=== PATIENT | male | born 1990 | race African-American/Black ===

== ENCOUNTER 2024-12-03 01:48 | Emergency (ER) | payer OTHER, SELFPAY ==
[2024-12-03] VITALS (7 sets, daily range): BP systolic 141–174; BP diastolic 71–89; PULSE 99–106; RESP 14–16; TEMP 36.8–36.9; O2SAT 91–100
--- NOTE | ~2024-12-03 | XR_ITS ---
AP and oblique views of the left ribs Clinical History: Pain Findings: No rib fracture is seen. Osseous alignment is anatomic. Lungs are clear, without focal cons olidation or pleural effusion. Cardiomediastinal contour is within normal limits. Soft tissues are un remarkable. Impression: No rib fracture is seen. Reviewed, dictated and finalized at [facility]. Impression: No rib fracture is seen.
--- NOTE | 2024-12-03 02:05 | PC.NURSE ---
pt ambulatory off ems stretcher to er stretcher with no distress noted.
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
[2024-12-03] MEDS: PLEASE ENTER ALLERGY INFO XX (03:34)
[2024-12-03] MEDS: KETOROLAC (*BKC) 60 MG/2 ML VIAL IM (03:34)
--- OUTSIDE RECORDS SUMMARY | 2024-12-03 04:52 | XMS_ITS | Encounter Summary ---
Author Organization [facility] Health Address [address] [place] [address] Care Team Providers Care Finance Admin Name Role Phone Shahla MCKEON MD, Deonte Page Primary Care Provider + Reason for Visit * Reason Onset Date Comments Appointment 11/02/2023 Encounter Details Date Type Department Care Team (Late st Contact Info) Description 11/02/2023 Telephone [facility] - Cardiology [address], [facility] [address] [place] [address] Rehan Bush, INSPECTOR [employer] Appointment Social History Tobacco Use Types Packs/Day Years Used Date Smoking Tobacco: Former Cigarettes 0.5 5 Smokeless Tobacco: Never Comments:2-3 cigarettes per week Alcohol Use Standard Drinks/Week Comments Not Currently 0 (1 standard drink = 0.6 oz pur e alcohol) AUDIT-C Answer Date Recorded Q1: How often do you have a drink containing alcohol? Never 02/03/2023 Q2: How many drinks containi ng alcohol do you have on a typical day when you are drinking? Patient does not drink Q3: How often do you have si x or more drinks on one occasion? Never 02/03/2023 Overall Financial Resource Strain (CARDIA) Answe r Date Recorded How hard is it for you to pa y for the very basics like food, housing, medical care, and heating? Not very hard 10/17/2023 PHQ-2 Answer Date Recorded Patient Health Questionnaire-2 Score 0 03/22/2023 [facility] - Occupational Stress Questionnaire Answer Date Recorded Do you feel stress - tense, restless, nervous, or anxious, or unable to sleep at night because your mind is troubled all the time - these days? Not at all 10/17/2023 Hunger Vital Sign Answer Date Recorded Within the past 12 months, y ou worried that your food would run out before you got the money to buy more. Never true 10/17/19 24 Within the past 12 months, t he food you bought just didn't last and you didn't have money to get more. Never true 10/17/2023 PRAPARE - Transportation Answer Date Re corded In the past 12 months, has l ack of transportation kept you from medical appointments or from getting medications? No 10/17/2023 Lack of Transportation (Non-Medical) Not on file 10/17/2023 Housing Stability Vital Sign Answer Dominik e Recorded In the last 12 months, was t here a time when you were not able to pay the mortgage or rent on time? No 10/17/2023 In the last 12 months, how many places have you lived? 1 10/17/2023 In the last 12 months, was t here a time when you did not have a steady place to sleep or slept in a nursing home (including now)? No 10/17/2023 Sex and Gender Information Value Date Recorded Sex Assigned at Not on file Legal Sex Male 12:46 AM CDT Gender Identity Not on file Sexual Orientation Not on file documented as of this encounter Functional Status * Is person deaf or have serious hearing difficulty? Answer Date of Assessment Author No 04/23/2023 11:37 AM CDT Ann Boyer RN * Is person blind or have serious difficulty seeing? Answer Date of Assessment Author No 04/23/2023 11:37 AM CDT Ann Boyer RN * Does person have serious difficulty walking/climbing stairs? Answer Date of Assessment Author No 04/23/2023 11:37 AM DICKSONT Ann Boyer RN * Does person have difficulty dressing/bathing? Answer Date of Assessment Author No 04/23/2023 11:37 AM CDT Ann Boyer RN * Does person have difficulty doing errands alone? Answer Date of Assessment Author No 04/23/2023 11:37 AM CDT Ann Boyer RN documented as of this encounter Mental Status * Does person have difficulty concentrating/remembering/making decisions? Answer Entry Date Author No 04/23/2023 11:37 AM CDT Ann Boyer RN documented in this encounter Miscellaneous Notes * Telephone Encounter - Kelly Garcia - 11/02/2023 11:38 AM CDT Current Provider name: Rehan Bush Reason for call: [facility] called requesting if the pt could get in sooner than appointment on 01/02 regarding CHF. Pt's scheduled appt is the soonest available for a new pt Patient Call Back number: [phone] documented in this encounter Plan of Treatment Upcoming Encounters Date Type Department Care Team (Late st Contact Info) Description 12/03/2024 8:30 AM CDT Office Visit [facility] - Internal Med [address] [place] [address], [place] [id number] Deonte Gale II, MD [address] [place] [address] OF [facility] [place] [address] documented as of this encounter Goals Goal Patient Goal Type Associated Problems Recent Progress Patient-Stated? Author Medication Management General On track( 024 10:46 AM CDT) No Tanja Aburto RN Note: Expected end date: Ongoing Interventions: Take all medications as prescribed Let your doctor know right away about any changes in your medications Make sure to request a refill of your medication at least one week prior to your last dose documented as of this encounter Visit Diagnoses Not on filedocumented in this encounter Additional Health Concerns Infection Onset Date Last Indicated Resolved Time COVID-19 Under Investigation 07/17/2024 07/17/2024 07/17/2024 6:13 PM STAFF RESPIRATORY THERAPIST COVID-19 Under Investigation 07/17/2024 07/17/2024 07/18/2024 2:37 AM STAFF RESPIRATORY THERAPIST documented as of this encounter Care Teams Finance Admin Relationship Specialty Start Date End Date Deonte Gale II, MD [address] OF [facility] [place] [address] PCP - General Internal Medicine 04/06/23 documented as of this encounter
--- OUTSIDE RECORDS SUMMARY | 2024-12-03 04:52 | XMS_ITS | Clinical Summary ---
Author Organization [facility] Address [address] [place] [address] Care Team Providers Care Dispute Coordinator Name Role Phone No, Physician Primary Care Provider [phone] Allergies No known active allergies Medications aspirin 81 mg enteric coated tablet Take 1 tablet (81 mg total) by mouth daily 3 Active carvediloL (COREG) 6.25 mg tablet Take 1 tablet (6.25 mg total) by mouth 3 Active lovastatin (MEVACOR) 10 mg tablet Take 1 tablet (10 mg total) by mouth nightly 3 Active metFORMIN (GLUCOPHAGE) 500 mg tablet Take 1 tablet (500 mg total) by mouth 3 Active acetaminophen 500 mg capsuleIndicati ons:Fever,Pain Take 2 capsules (1,000 mg total) by mouth every 6 (six) hours as needed for pain 30 tablet 3 Active polyethylene glycol (MIRALAX) 17 gram packetIndicatio ns:constipation Take 1 packet (17 g total) by mouth daily as needed for constipation for up to 30 doses 20 packet 3 Active insulin glargine (LANTUS) 100 unit/mL (3 mL) pen for injection Inject 40 Units under the skin nightly 30 mL 3 Active folic acid (FOLVITE) 1 mg tablet Take 1 tablet (1 mg total) by mouth daily 30 tablet 3 Active oxyCODONE (ROXICODONE) 5 mg immediate release tabletIndicatio ns:Pain Take 1 tablet (5 mg total) by mouth every 4 (four) hours as needed for pain for up to 12 doses 12 tablet 3 Active glucagon (BAQSIMI) 3 mg/actuation spray,non-aeros ol Administer 1 spray into one nostril as needed (blood glucose <70) 1 each 3 Active insulin lispro (HumaLOG, ADMELOG) 100 unit/mL pen for injection Inject 10 Units under the skin 3 (three) times a day 12 mL 3 Active Active Problems Problem Noted Date Diagnosed Date Chronic kidney disease (CKD), stage III (moderat e) 01/13/2023 Assessment & Plan (01/13/2023 12:33 PM CDT): -likely due to uncontrolled DM -Creatinine improved as compared to the ones from [facility] early January 2023 -monitor Necrotizing soft tissue infection 01/12/2023 Assessment & Plan (01/16/2023 11:33 AM CDT): -Found to have necrotizing fascitis on 12/29. -Underwent debridement 12/31 and washout 01/03, 01/05 with cultures growing staph haemolyticus, staph epi, and prevotella. Bcx neg. -left [facility] before finishing antibiotics -continue vancomycin, cefepime and flagyl, EOT 01/17/23 -needs dry dressing changes daily. Wound c/s -[facility] consulted for reena drain emoval today and sutures will need to be out 02/05 at [facility] -advised follow up with his surgeons at [facility] Diabetes 01/12/2023 Assessment & Plan (01/13/2023 12:27 PM CDT): -A1C undetectably high in 12/2022 -home regimen: lantus 40, lispro 10 -started on weight based basal/premeal and SSI here -inpatient BG goal 140-180 -CTM HTN (hypertension) 01/12/2023 Assessment & Plan (01/13/2023 12:23 PM CDT): -continue Amlodipine, coreg Anemia 01/12/2023 Assessment & Plan (01/13/2023 12:27 PM CDT): -OSH labs c/w AoCD, folate deficiency (in 01/2023) -CTM Hospital acquired PNA 01/12/2023 Assessment & Plan (01/14/2023 12:57 PM CDT): -Found to have HAP 01/05 s/p 7 days of vanc/cefe/flagyl (and will be on additional for necrotizing thigh infection until 01/17) -RVP neg, CXR neg on RA so likely SOB from deconditioning -added prn anti-tussives and nebs -CTM Morbid obesity with BMI of 60.0-69.9, adult 03/2023 Assessment & Plan (01/13/2023 12:24 PM CDT): -BMI 66 -low fat, DM diet -counseled on weight loss Discharge planning issues 01/12/2023 Assessment & Plan (01/16/2023 11:34 AM CDT): -Needs IV abx until 01/17. -[facility] was working on discharging but he ended up leaving A. Was told that his [place] Medicaid would not cover SNF which he needs d/t severe deconditioning - PT OT now rec Home w family -will finish IV antibiotics tomorrow Sleep apnea 12/20/2022 01/12/2023 Assessment & Plan (01/14/2023 12:58 PM CDT): -reinstated the importance of wearing a BiPAP nightly, refused to wear it last night -He's so high risk for decompensation that order allows machine to be kept in room -explained the risk of respiratory failure to him at bedside -tele w/ O2 monitoring Resolved Problems Problem Noted Date Diagnosed Date Resolved Date GO (dyspnea on exertion) 01/13/2023 Assessment & Plan (01/13/2023 12:25 PM CDT): -S/p 7 days HAP treatment and still GO -CXR neg, RVP neg - DDx: deconditioning + body habitus. Less likely PE as he is not hypoxic and was receiving DVT ppx at [facility]. No signs of volume overload Social History Tobacco Use Types Packs/Day Years Used Date Smoking Tobacco: Former Cigarettes Tobacco Cessation:Counseling Given: Not Answered Social Connection and Isolat ion Panel [NHANES] Answer Date Recorded In a typical week, how many times do you talk on the phone with family, friends, or neighbors? More than three times a week 01/19/2023 How often do you get togethe r with friends or relatives? More than three times a week 01/19/2023 How often do you attend chur ch or muslim services? More than 4 times per year 01/19/2023 Do you belong to any clubs o r organizations such as samaritan groups, unions, fraternal or athletic groups, or school groups? No 01/19/2023 How often do you attend meet ings of the clubs or organizations you belong to? Never 01/19/2023 Are you , , di vorced, , never , or living with a partner? Living with partner 01/19/2023 Overall Financial Resource Strain (CARDIA) Answe r Date Recorded How hard is it for you to pa y for the very basics like food, housing, medical care, and heating? Somewhat hard 01/19/2023 PHQ-2 Answer Date Recorded PHQ-2 Total Score (If total score is 3 or more points, staff should administer the PHQ-9) 0 01/12/2023 Hunger Vital Sign Answer Date Recorded Within the past 12 months, y ou worried that your food would run out before you got the money to buy more. Sometimes true Within the past 12 months, t he food you bought just didn't last and you didn't have money to get more. Sometimes true PRAPARE - Transportation Answer Date Re corded In the past 12 months, has l ack of transportation kept you from medical appointments or from getting medications? Yes 01/05 In the past 12 months, has l ack of transportation kept you from meetings, work, or from getting things needed for daily living? Yes 01/19/2023 Housing Stability Vital Sign Answer Dominik e Recorded In the last 12 months, was t here a time when you were not able to pay the mortgage or rent on time? No 01/19/2023 In the last 12 months, how many places have you lived? 2 01/19/2023 In the last 12 months, was t here a time when you did not have a steady place to sleep or slept in a senior care (including now)? No 01/19/2023 Personal Safety Answer Date Recorded Have you ever been in or are you currently in a harmful physical or emotional relationship or is someone making you feel afraid or unsafe? Denies 01/12/2023 Sex and Gender Information Value Date Recorded Sex Assigned at Not on file Legal Sex Male 2:57 PM CDT Gender Identity Not on file Sexual Orientation Not on file Obstetrics History Last Filed Vital Signs Vital Sign Reading Time Taken Comments Blood Pressure 142/65 01/17/2023 12:10 PM CDT Pulse 84 01/17/2023 12:10 PM CDT Temperature 36.6 C (97.9 F) 01/17/2023 12:10 PM CDT Respiratory Rate 18 01/17/2023 12:10 PM CDT Oxygen Saturation 99% 01/17/2023 12:10 PM CDT Inhaled Oxygen Concentration - - Weight 215 kg (473 lb 15.8 oz) 01/13/2023 12:27 AM CDT Height 180.3 cm (5' 10.98 ) 01/13/2023 12:27 AM CDT Body Mass Index 66.14 01/13/2023 12:27 AM CDT Plan of Treatment Health Maintenance Due Date Last Done Comments Albumin Creatinine Ratio, Urine 1988 Hepatitis C Screening 1988 Dilated Eye Exam 1988 Foot Exam 1988 Varicella Vaccines (1 of 2 - 13+ 2-dose series) 2001 Regular Well Visit/Exam 18-64 2006 Pneumococcal vaccine <65 (1 of 2 - PCV) 2007 Depression Screening 01/13/2024 01/12/2023 eGFR 01/16/2024 01/15/2023, 04/2023, 01/12/2023 Hemoglobin A1C 10/20/2024 04/22/2024, 01/2 04/2024, 07/10/2023, Additional history exists Lipid Panel 04/22/2025 04/22/2024, 1008/2022, 01/12/2023 DTaP/Tdap/Td Vaccine (2 - Td or Tdap) 03/22/2033 03/22/2023 Hepatitis B Screening Completed 04/22/2024 , 04/26/2023, 03/22/2023 Influenza Vaccine Completed 04/22/2024, 10/25/2023 HPV Vaccines Aged Out No longer eligi ble based on patient's age to complete this topic Procedures Procedure Name Priority Date/Time Associated Diagnosis Comments EGFR Routine 01/15/2023 10:26 PM CDT HEMOGLOBIN A1C STAT 01/12/2023 7:53 PM CDT LIPID PANEL STAT 01/12/2023 7:53 PM CDT from Last 3 Months or Most Recently Relevant to Health Maintenance Results * (ABNORMAL) eGFR (01/15/2023 10:26 PM CDT) eGFR 50(L) 90 - 130 mL/min/1. 73 m2 [facility] Comment: Interpretive Data Reference Interval Normal >/= 90 mL/min/1.73m2 Mildly decreased* 60 - 89 mL/min/1.73m2 Mildly to moderately decreased 45 - 59 mL/min/1.73m2 Moderately to severely decreased 30 - 44 mL/min/1.73m2 Severely decreased 15 - 29 mL/min/1.73m2 Kidney Failure < 15 mL/min/1.73m2 *Relative to young adult level Estimated glomerular filtration rate is determined by the 2020 CKD-EPI equation recommended by the National Kidney Foundation (A Unifying Approach to GFR Estimation: Recommendations of the NKF-ASK Task Force on Reassessing the Inclusion of Race in Diagnosing Kidney Disease, JASN 2020). The CKD-EPI equation should not be used for patients with unstable renal function and has not been validated in children and those over 70. Current interpretive data was last reviewed 2021. Blood 01/15/2023 10:2 6 PM CDT 01/15/2023 10:53 PM CDT us Nunu Mortensen MD PhD LAB BLOOD ORDERABLES Final Result Performing Organization Address [facility] de Phone Number [facility] [place] [address] * (ABNORMAL) Hemoglobin A1c (01/12/2023 7:53 PM CDT) Hgb A1C 11.8(H) 4.0 - 5.6 % [facility] Estimated Average Glucose 292 mg/dL [facility] Comment: The ADA recommends reporting an estimated Average Glucose (eAG) with all Hemoglobin A1c results using the equation derived from a study of 507 normal and diabetic adults. Minority populations were underrepresented and children were not included. (Diabetes Care 2020; 43(S1): S66-S76). The eAG is not equivalent to a fasting glucose. Blood 01/12/2023 7:53 PM CDT 01/12/2023 8:07 PM CDT Deepika Ragland MD LAB BLOOD ORDERABLES Final Result Performing Organization Address [facility] de Phone Number [facility] [place] [address] * (ABNORMAL) Lipid panel (01/12/2023 7:53 PM CDT) Cholesterol 105 30 - 199 mg/dL [facility] Comment: Interpretive Data Ages < or = 19 years Acceptable: <170 mg/dL Borderline high: 170-199 mg/dL High: >or= 200 mg/dL Ages > or = 20 years Desirable: <200 mg/dL Borderline high: 200-239 mg/dL High: >or= 240 mg/dL Literature References: 1. Expert Panel on Integrated Guidelines for Cardiovascular Health and Risk Reduction in Children and Adolescents. Pediatrics 2011;128:S213 2. NCEP Expert Panel. Circulation 2004;110:227 Current Interpretive Data was last revised on 2018. Triglycerides 125 <=149 mg/dL [facility] Comment: Interpretive Data Ages < or = 9 years Acceptable: <75 mg/dL Borderline high: 75-99 mg/dL High: >or= 100 mg/dL Ages 10 to 20 years Acceptable: <90 mg/dL Borderline high: 90-129 mg/dL High: >or= 130 mg/dL Ages > or = 20 years Desirable: <150 mg/dL Borderline high: 150-199 mg/dL High: 200-499 mg/dL Very high: >or= 499 mg/dL Literature References: 1. Expert Panel on Integrated Guidelines for Cardiovascular Health and Risk Reduction in Children and Adolescents. Pediatrics 2011;128:S213 2. NCEP Expert Panel. Circulation 2004;110:227 Current Interpretive Data was last revised on 2018. HDL 33(L) >=40 mg/dL [facility] Comment: Interpretive Data Ages < or = 19 years Acceptable: >45 mg/dL Borderline low: 40-45 mg/dL Low: <40 mg/dL Ages > or = 20 years Desirable: >or= 60 mg/dL Low: <40 mg/dL Literature References: 1. Expert Panel on Integrated Guidelines for Cardiovascular Health and Risk Reduction in Children and Adolescents. Pediatrics 2011;128:S213 2. NCEP Expert Panel. Circulation 2004;110:227 Current Interpretive Data was last revised on 2018. LDL, calculated 47 <=129 mg/dL [facility] Comment: Interpretive Data Ages < or = 19 years Acceptable: <110 mg/dL Borderline high: 110-129 mg/dL High: >or= 130 mg/dL Ages > or = 20 years Optimal: <100 mg/dL Near optimal: 100-129 mg/dL Borderline high: 130-159 mg/dL High: >160 mg/dL Literature References: 1. Expert Panel on Integrated Guidelines for Cardiovascular Health and Risk Reduction in Children and Adolescents. Pediatrics 2011;128:S213 2. NCEP Expert Panel. Circulation 2004;110:227 Current Interpretive Data was last revised on 2018. Non-HDL Cholesterol 72 mg/dL [facility] Comment: Interpretive Data Ages < or = 19 years Acceptable: <120 mg/dL Borderline high: 120-144 mg/dL High: >145 mg/dL Ages > or = 20 years When triglycerides are >200 mg/dL, Non-HDL cholesterol is a secondary target of therapy with treatment goals that are 30 mg/dL greater than the LDL cholesterol target. Literature References: 1. Expert Panel on Integrated Guidelines for Cardiovascular Health and Risk Reduction in Children and Adolescents. Pediatrics 2011;128:S213 2. NCEP Expert Panel. Circulation 2004;110:227 Current Interpretive Data was last revised on 2018. Chol/HDL ratio 3 [facility] Blood 01/12/2023 7:53 PM CDT 01/12/2023 8:05 PM CDT Deepika Ragland MD LAB BLOOD ORDERABLES Final Result [facility] [place] [address] from Last 3 Months or Most Recently Relevant to Health Maintenance Insurance [facility] Advance Directives For more information, please contact: [phone] * Full Code (Latest Code Status on File) Date Activated Date Inactivated Comments 01/13/2023 12:05 AM 01/17/2023 7:22 PM Care Teams Dispute Coordinator Relationship Specialty Start Date End Date No, Physician PCP - General 01/12/23
--- OUTSIDE RECORDS SUMMARY | 2024-12-03 04:52 | XMS_ITS | Encounter Summary ---
Author Organization [facility] Address [address] [place] [address] Care Team Providers Care Child Welfare Consultant Name Role Phone None, Provider Primary Care Provider Unavaila ble Encounter Details Date Type Department Care Team (Late st Contact Info) Description 10/21/2017 Abstract [facility] CONVERSION [address] [place] [address] , Generic Conversion, Social History Tobacco Use Types Packs/Day Years Used Date Smoking Tobacco: Never Assessed Sex and Gender Information Value Date Recorded Sex Assigned at Male 11/29/2024 11:38 PM CDT Legal Sex Male 10:14 PM CAD INTERN Gender Identity Not on file Sexual Orientation Not on file documented as of this encounter Plan of Treatment Not on file documented as of this encounter Visit Diagnoses Not on filedocumented in this encounter Care Teams Child Welfare Consultant Relationship Specialty Start Date End Date None, Provider, PCP - General 04/22/20 documented as of this encounter
--- OUTSIDE RECORDS SUMMARY | 2024-12-03 04:52 | XMS_ITS | Patient Health Record ---
Author Organization [facility] Address [address] [place] [address] Care Team Providers Care Manager Cath Lab Name Role Phone Virginia Cardenas Primary Care Provider Allergies No Known Allergies Reason For Referral No Information Medications Medication SIG (Take, Route, Frequency, Duration) Notes Start Date End Date Status metFORMIN HCl ER 500 MG TAKE 1 TABLET BY MOUTH TWICE A DAY WITH MEALS for 30 Active Gabapentin 300 MG 1 capsule Orally twi ce daily for 30 days Active HumaLOG KwikPen 100 UNIT/ML 10 units with meals Subcutaneous three times daily for 30 days 11/24/2021 Active Aspirin Low Dose 81 MG TAKE 1 TABLET BY MOUTH EVERY DAY FOR 30 DAYS for 30 Active Lancets - as directed external ly once daily for 100 days 03/18/2020 Not-Taki ng Lantus SoloStar 100 UNIT/ML 40 units Subcutaneous once daily at bedtime for 30 days Active Alcohol Prep 70 % as directed clean sk in prior to injecting insulin for 100 days 06/26/2020 Not-Taking Chlorthalidone 50 MG TAKE 1 TABLET BY MO UTH EVERY DAY IN THE MORNING WITH FOOD FOR 30 DAYS for 30 Active Insulin Pen Needle 31G X 6 MM as directed three times daily for 30 days 11/24/2021 Not-Taking Lisinopril 40 MG 1 tablet Orally Once a day for 30 days Active OneTouch Verio - USE DIRECTED FOUR TIMES A DAY for 25 Not-Taking Pen Schurz 31G X 6 MM as directed exter milan once daily for 30 days Active Lovastatin 40 MG TAKE 1 TABLET BY KIERA TH WITH THE EVENING MEAL ONCE A DAY for 30 days Active Glucometer of choice regular use when directed external four times daily for 365 days Not-Taking Lancets - as directed external ly four times daily for 30 days Not-Taking Lovastatin 40 MG 1 tablet with the evening meal Orally Once a day for 30 days Not-Michele meier Immunizations Vaccine Route Administration Date Status Comme nts TDAP VACCINE >7 IM Unknown 02/22/2014 Administered TDAP VACCINE >7 IM Unknown 09/07/2020 Administered Social History Tobacco Use: Social History Observation Description Date Details (start date - stop date) Current Smoker NA - NA Tobacco Use/Smoking Question Answer Notes Are you a current smoker How often do you smoke cigarettes? every day How many cigarettes a day do you smoke? 11-20 How soon after you wake up d o you smoke your first cigarette? 31-60 minutes Are you interested in quitting? Not ready to juliet t Additional Findings: Tobacco User Modera te cigarette smoker (10-19 cigs/day) Alcohol Screen (Audit-C) Question Answer Notes Did you have a drink contain ing alcohol in the past year? Yes How often did you have a dri nk containing alcohol in the past year? 2 to 4 times a month (2 points) How many drinks did you have on a typical day when you were drinking in the past year? 1 or 2 drinks (0 point) How often did you have 6 or more drinks on one occasion in the past year? Never (0 point) Points 2 Interpretation Negative Sexual History Question Answer Notes Had sex in the past 12 months (vaginal, oral, or anal)? Yes with Women only Use protection? Yes How often? Half the time Prevention strategies discussed: Condoms Have you ever had a Sexually transmitted disease ? No Tobacco use other than smoking: Question Answer Notes Are you an other tobacco user? No Problems Problem Type SNOMED Code ICD Code Onset Dates Problem Status W/U Status Risk Notes Problem [id number] Type 1 diabetes mellitus with hyperglycemia (E10.65) 11/25/19 Active confirmed Problem 8675853 Primary insomnia (F51.01) 11/15/19 23 Active confirmed Problem 297347424 skilled nursing (current) use of insulin (Z79.4) 11/25/19 Active confirmed Problem Tobacco dependence (33713243) Tobacco dependence (F17.200) 06/26/20 Active confirmed Problem 03252317 Essential hypertension (I10) 12/27/19 Active confirmed Problem 541601513 Neuropathy (G62.9) 08/19/19 Active confirmed Problem 83593948 Hyponatremia (E87.1) 06/26/20 Active confirmed Problem 876784539 Elevated liver enzymes (R74.8) 06/26/20 Active confirmed Problem 396068560 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) 08/19/19 Active confirmed Problem 136573234 Type 2 diabetes mellitus without complication, without long-term current use of insulin (E11.9) 12/27/19 Active confirmed Problem Body mass index 40+ - morbidly obese (556243525) BMI 70 and over, adult (Z68.45) 11/25/19 Active confirmed Problem Osteomyelitis (16356924) 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) 06/26/20 Active confirmed Plan Of Treatment Pending Test Test Name Order Date Sleep Study, Home : 10276 11/14/2022 Insurance Providers Payer Name Payer Address Payer Phone Subscriber Number Group Number Insured Name Patient Relationship to Insured Coverage Start Date Coverage End Date [facility] [address] [place] [address] [id number] Yan Bautista Self - patient is the insured [facility] [address] [place] [address] [id number] Yan Bauitsta Self - patient is the insured Medical (General) History Medical History History ICD Code Type 2 diabetes HTN Sleep apnea Surgical History Surgery Date(Month/Year) ankle surgery 04/2020 Hospitalization History Reason Date(Month/Year) [facility] ER 11/2021
--- OUTSIDE RECORDS SUMMARY | 2024-12-03 04:52 | XMS_ITS | Encounter Summary ---
Author Organization [facility] Address [address] [place] [address] Care Team Providers Care Washer Assembler Name Role Phone None, Provider Primary Care Provider Felipe moreno Encounter Details Date Type Department Care Team (Late st Contact Info) Description 05/09/2023 Hospital Follow-up Call [facility] [address] [place] [address] Mellisa Leal RN Social History Tobacco Use Types Packs/Day Years Used Date Smoking Tobacco: Every Day Cigarettes Smokeless Tobacco: Never Alcohol Use Standard Drinks/Week Comments Not Currently 0 (1 standard drink = 0.6 oz pur e alcohol) Humiliation, Afraid, Rape, and Kick questionnair e Answer Date Recorded Within the last year, have y ou been afraid of your partner or ex-partner? No 05/06/2023 Within the last year, have y ou been humiliated or emotionally abused in other ways by your partner or ex-partner? No Within the last year, have y ou been kicked, hit, slapped, or otherwise physically hurt by your partner or ex-partner? No 05/06/2023 Within the last year, have y ou been raped or forced to have any kind of sexual activity by your partner or ex-partner? No 05/06/2023 Overall Financial Resource Strain (CARDIA) Answe r Date Recorded How hard is it for you to pa y for the very basics like food, housing, medical care, and heating? Not hard at all 05/06/2023 Hunger Vital Sign Answer Date Recorded Within the past 12 months, y ou worried that your food would run out before you got the money to buy more. Never true 05/06/20 23 Within the past 12 months, t he food you bought just didn't last and you didn't have money to get more. Never true 05/06/2023 PRAPARE - Transportation Answer Date Re corded In the past 12 months, has l ack of transportation kept you from medical appointments or from getting medications? No 04/09 In the past 12 months, has l ack of transportation kept you from meetings, work, or from getting things needed for daily living? No 05/06/2023 Housing Stability Vital Sign Answer Dominik e Recorded In the last 12 months, was t here a time when you were not able to pay the mortgage or rent on time? No 05/06/2023 In the last 12 months, how many places have you lived? 2 05/06/2023 In the last 12 months, was t here a time when you did not have a steady place to sleep or slept in a custodial (including now)? No 05/06/2023 Sex and Gender Information Value Date Recorded Sex Assigned at Male 11/29/2024 11:38 PM CDT Legal Sex Male 10:14 PM COATER Gender Identity Not on file Sexual Orientation Not on file documented as of this encounter Functional Status * Are you deaf or do you have serious difficulty hearing Answer Date of Assessment Author Status No 05/06/2023 6:14 AM Deep Moreno RN Active * Are you blind or do you have serious difficulty seeing, even when wearing glasses? Answer Date of Assessment Author Status No 05/06/2023 6:14 AM Deep Moreno RN Active * Do you have serious difficulty walking or climbing stairs? Answer Date of Assessment Author Status No 05/06/2023 6:14 AM Deep Moreno RN Active * Do you have difficulty dressing or bathing? Answer Date of Assessment Author Status No 05/06/2023 6:14 AM Deep Moreno RN Active * Because of a physical, mental, or emotional condition, do you have difficulty doing errands alone such as visiting a doctor's office or shopping? Answer Date of Assessment Author Status No 05/06/2023 6:14 AM Deep Moreno RN Active documented as of this encounter Mental Status * Because of a physical, mental, or emotional condition, do you have serious difficulty concentrating, remembering, or making decisions? Answer Entry Date Author Status No 05/06/2023 6:14 AM Deep Moreno RN Active documented in this encounter Plan of Treatment Not on file documented as of this encounter Goals Goal Patient Goal Type Associated Problems Recent Progress Patient-Stated? Author Safety - able to safely ambulate at home; tripping hazards removed from the home Lifestyle No Magy Lai Safety Patient/family will have appropriate support at home upon discharge Lifestyle No Magy Lai documented as of this encounter Visit Diagnoses Not on filedocumented in this encounter Care Teams Washer Assembler Relationship Specialty Start Date End Date None, Provider, PCP - General 04/22/20 documented as of this encounter
--- OUTSIDE RECORDS SUMMARY | 2024-12-03 04:52 | XMS_ITS | Clinical Summary ---
Author Organization [facility] Address [address] [place] [address] Care Team Providers Care Director Of Entertainment Name Role Phone None, Provider MD Primary Care Provider Unavaila ble Allergies No known active allergies Medications carvedilol (COREG) 25 MG tablet Take 1 tablet (25 mg total) by mouth 2 (two) times daily. 02/24/2023 Active furosemide (LASIX) 40 MG tablet Take 1 tablet (40 mg total) by mouth 2 (two) times daily. 02/24/2023 Active valsartan (DIOVAN) 160 MG tablet Take 1 tablet (160 mg total) by mouth 2 (two) times a day. 02/24/2023 Active rosuvastatin (CRESTOR) 10 MG tablet Take 1 tablet (10 mg total) by mouth daily. 02/24/2023 Active gabapentin (NEURONTIN) 600 MG tablet Take 1 tablet (600 mg total) by mouth 3 (three) times daily. 02/24/2023 Active metFORMIN (GLUCOPHAGE) 500 MG tablet Take 1 tablet (500 mg total) by mouth 2 (two) times daily with meals. Active insulin glargine (LANTUS) 100 UNIT/ML injection (VIAL) Inject 40 Units into the skin nightly at bedtime. Active insulin lispro (HUMALOG) 100 UNIT/ML injection (VIAL) Inject 10 Units into the skin 3 (three) times daily before meals. Active NIFEdipine XL (PROCARDIA XL) 90 MG 24 hr tablet Take 1 tablet (90 mg total) by mouth daily. Do not break or crush tablet. Active lidocaine (LIDODERM) 5 % Place 1 patch onto the skin daily for 30 days. Remove & Discard patch within 12 hours or as directed by 30 patch 11/30/2024 12/31/19 Active Active Problems Problem Noted Date Diagnosed Date Diastolic dysfunction 08/05/2023 Hyperkalemia 07/11/2023 Cellulitis of right leg 06/30/2023 CHF (congestive heart failure) ([facility]) 05/06/2023 keno terminal operator (current) use of insulin ([facility]) 11/24/2021 Type 1 diabetes mellitus wit h hyperglycemia ([facility]) 11/24/2021 Neuropathy 08/19/2021 Other diabetic neurological complication associated with type 2 diabetes mellitus ([facility]) 08/19/2021 Elevated liver enzymes 06/26/2020 Hyponatremia 06/26/2020 Osteomyelitis ([facility]) 06/26/2020 Tobacco dependence 06/26/2020 Essential hypertension 12/27/2019 Encounters Date Type Department Care Team Description 11/30/2024 1:42 AM CDT - 11/30/2024 4:49 AM CDT Emergency [facility] Emergency [address] [place] [address] Elmo Ballard MD Fall Discharge Disposition: Home or Self Care (Routine Discharge) 11/29/2024 Travel from Last 3 Months Social History Tobacco Use Types Packs/Day Years Used Date Smoking Tobacco: Every Day Cigarettes Smokeless Tobacco: Never Tobacco Cessation:Ready to Q uit: Not Asked; Counseling Given: Not Answered Alcohol Use Standard Drinks/Week Comments Not Currently 0 (1 standard drink = 0.6 oz pur e alcohol) [facility] Utilities Answer Date Recorded In the past 12 months has e [employer], oil, or water [email or web address] threatened to shut off services in your home? No 06/30/2023 Humiliation, Afraid, Rape, and Kick questionnair e Answer Date Recorded Within the last year, have y ou been afraid of your partner or ex-partner? No 06/30/2023 Within the last year, have y ou been humiliated or emotionally abused in other ways by your partner or ex-partner? No Within the last year, have y ou been kicked, hit, slapped, or otherwise physically hurt by your partner or ex-partner? No 06/30/2023 Within the last year, have y ou been raped or forced to have any kind of sexual activity by your partner or ex-partner? No 06/30/2023 Overall Financial Resource Strain (CARDIA) Answe r Date Recorded How hard is it for you to pa y for the very basics like food, housing, medical care, and heating? Not very hard 06/30/2023 Hunger Vital Sign Answer Date Recorded Within the past 12 months, y ou worried that your food would run out before you got the money to buy more. Never true 06/30/20 23 Within the past 12 months, t he food you bought just didn't last and you didn't have money to get more. Never true 06/30/2023 PRAPARE - Transportation Answer Date Re corded In the past 12 months, has l ack of transportation kept you from medical appointments or from getting medications? No 06/08 In the past 12 months, has l ack of transportation kept you from meetings, work, or from getting things needed for daily living? No 06/30/2023 Housing Stability Vital Sign Answer Dominik e Recorded In the last 12 months, was t here a time when you were not able to pay the mortgage or rent on time? No 06/30/2023 In the last 12 months, how many places have you lived? 1 06/30/2023 In the last 12 months, was t here a time when you did not have a steady place to sleep or slept in a skilled nursing (including now)? 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 Gender Identity Not on file Sexual Orientation Not on file Last Filed Vital Signs Vital Sign Reading Time Taken Comments Blood Pressure 181/131 11/30/2024 3:38 AM CDT Pulse 83 11/30/2024 3:38 AM CDT Temperature 36.7 C (98.1 F) 11/29/2024 8:06 PM CDT Respiratory Rate 18 11/29/2024 8:06 PM CDT Oxygen Saturation 93% 11/30/2024 3:38 AM CDT Inhaled Oxygen Concentration - - Weight 267 kg (588 lb 10.1 oz) 11/29/2024 8:06 P M CDT Height 180.3 cm (5' 11 ) 11/29/2024 8:06 PM CDT Body Mass Index 82.1 11/29/2024 8:06 PM CDT Plan of Treatment Health Maintenance Due Date Last Done Comments Kidney Health Evaluation 1988 Annual Physical 1991 Diabetes: Retinopathy Eye Exam 2006 COVID-19 Vaccine ( season) 2024 Lipid Panel 05/07/2024 05/07/2023 Hemoglobin A1C 10/15/2024 07/17/2024, 04/07, 09/04/2023, Additional history exists DTaP, Tdap and Td Vaccines (4 - Td or Tdap) 03/22/2033 03/22/2023, 09/07/2020, 02/22/2014 Hepatitis C Completed 02/21/2023 Pneumococcal Vaccine: Pediatrics (0 to 5 Years) and At-Risk Patients (6 to 49 Years) Completed 03/22/2023 Hepatitis B Vaccines Completed 04/22/2024, 04/26/2023, 03/22/2023 HPV Vaccines Aged Out No longer eligi ble based on patient's age to complete this topic Meningococcal B Vaccine Aged Out No l onger eligible based on patient's age to complete this topic Meningococcal Vaccine Aged Out No jo manuel eligible based on patient's age to complete this topic RSV Immunizations Under 20 Months Aged Out No longer eligible based on patient's age to complete this topic Goals Goal Patient Goal Type Associated Problems Recent Progress Patient-Stated? Author Safety - able to safely ambulate at home; tripping hazards removed from the home Lifestyle No Magy Lai Safety Patient/family will have appropriate support at home upon discharge Lifestyle No Magy Lai Procedures Procedure Name Priority Date/Time Associated Diagnosis Comments CT ABD+PEL WO CON STAT 11/30/2024 3:2 4 AM CDT CREATININE WHOLE BLOOD Routine 11/30/2024 2:[address] CHEST WO CON STAT 11/29/2024 11:49 PM CDT LIPID PANEL Routine 05/07/2023 8:09 AM CDT HEMOGLOBIN, GLYCOSYLATED Routine 05/07/2023 8:09 AM CDT from Last 3 Months or Most Recently Relevant to Health Maintenance Results * CT ABD+PEL WO CON (11/30/2024 3:24 AM CDT) Anatomical Region Laterality Modality Abdomen Computed Tomogra phy 11/30/2024 3:29 AM CDT Impressions 11/30/2024 4:03 AM CDT IMPRESSION: LIMITED STUDY ON ACCOUNT OF PATIENT BODY HABITUS AND MOTION ARTIFACT. NO EVIDENCE OF ACUTE BLUNT OR PENETRATING TRAUMA TO THE ABDOMEN OR PELVIS. Referred By: Interpreted By: Oseas Laguerre MD, 11/30/2024 3:29 AM Narrative 11/30/2024 4:03 AM CDT [place] [address] EXAM: CT ABD+PEL WO CON INDICATION: Left upper quadrant abdominal pain after patient fell. TECHNIQUE: Noncontrast CT the abdomen and pelvis, from the lung bases to the pubic symphysis, was performed. Coronal and sagittal reformatted images were created and reviewed. The study is degraded by the patient's body habitus and moderate motion artifact. A radiation dose lowering technique was used for this procedure, which may include, but is not limited to, dose reduction technique, automated exposure control, the use of iterative reconstruction, ALARA (As Low As Reasonably Achievable) techniques, and Image Gently techniques. COMPARISON EXAM: CT abdomen and pelvis from 06/30/2023. FINDINGS: Allowing for the limiting factors as noted above, there is no evidence of blunt or penetrating injury to the abdomen or pelvis. Noncontrast liver, spleen, gallbladder, pancreas, adrenal glands and kidneys are grossly intact. The urinary bladder is partially collapsed and unremarkable. There is no bowel wall thickening, pneumatosis or free air. Normal appendix. Colonic diverticula with no diverticulitis. Fat-containing umbilical hernia with no bowel involvement. There is no abdominal or pelvic adenopathy or free fluid. Normal caliber abdominal aorta. Visualized skeletal structures are grossly intact. Procedure Note Oseas Laguerre MD - 11/30/2024 [facility] [address] [place], [place] [address] EXAM: CT ABD+PEL WO CON INDICATION: Left upper quadrant abdominal pain after patient fell. TECHNIQUE: Noncontrast CT the abdomen and pelvis, from the lung bases tothe pubic symphysis, was performed. Coronal and sagittal reformattedimages were created and reviewed. The study is degraded by the patient's body habitus and moderate motionartifact. A radiation dose lowering technique was used for this procedure, which mayinclude, but is not limited to, dose reduction technique, automatedexposure control, the use of iterative reconstruction, ALARA (As Low AsReasonably Achievable) techniques, and Image Gently techniques. COMPARISON EXAM: CT abdomen and pelvis from 06/30/2023. FINDINGS: Allowing for the limiting factors as noted above, there is noevidence of blunt or penetrating injury to the abdomen or pelvis.Noncontrast liver, spleen, gallbladder, pancreas, adrenal glands andkidneys are grossly intact. The urinary bladder is partially collapsedand unremarkable. There is no bowel wall thickening, pneumatosis or freeair. Normal appendix. Colonic diverticula with no diverticulitis.Fat-containing umbilical hernia with no bowel involvement. There is noabdominal or pelvic adenopathy or free fluid. Normal caliber abdominalaorta. Visualized skeletal structures are grossly intact. IMPRESSION: LIMITED STUDY ON ACCOUNT OF PATIENT BODY HABITUS AND MOTIONARTIFACT. NO EVIDENCE OF ACUTE BLUNT OR PENETRATING TRAUMA TO THE ABDOMEN ORPELVIS. Referred By: Interpreted By: Oseas Laguerre MD, 11/30/2024 3:29 AM Kailyn Mahoney DO CT Final Resul t * (ABNORMAL) CREATININE WHOLE BLOOD (11/30/2024 2:52 AM CDT) CREATININE WHOLE BLOOD 3.1(H) 0.6 - 1.3 mg/dL 11/30/2024 2:53 AM CDT [facility] GFR ESTIMATE 26(L) >90 ML/MIN/1. 73 M2 11/30/2024 2:53 AM CDT [facility] GFR NOTES GFR REFERENCE S: 11/30/2024 2:53 AM CDT [facility] Comment: THE ESTIMATED GFR IS CALCULATED USING THE 2020 CKD-EPI EQUATION. THE FOLLOWING CATEGORIES FOR GRADING RENAL FUNCTION ARE RECOMMENDED BY THE INTERNATIONAL SOCIETY OF NEPHROLOGY (KDIGO 2012 CLINICAL PRACTICE GUIDELINE). G1,NORMAL OR HIGH: >89 ml/min/1.73 m2 G2,MILDLY DECREASED: 60-89 ml/min/1.73 m2 G3A,MILDLY TO MODERATELY DECREASED: 45-59 ml/min/1.73 m2 G3B,MODERATELY TO SEVERELY DECREASED: 30-44 ml/min/1.73 m2 G4,SEVERELY DECREASED: 15-29 ml/min/1.73 m2 G5,KIDNEY FAILURE: <15 ml/min/1.73 m2 TIME TEST WAS PERFORMED: 252 11/30/2024 2:53 AM CDT [facility] 11/30/2024 2:52 AM CDT us Elmo Ballard MD LABORATORY Final Result [facility] [address] [place] [address], [id number] * CT CHEST WO CON (11/29/2024 11:49 PM CDT) Anatomical Region Laterality Modality Chest Computed Tomogra phy 11/30/2024 12:2 4 AM CDT Impressions 11/30/2024 12:33 AM CDT IMPRESSION: 1. No acute intrathoracic findings. 2. Hepatic steatosis and mild splenomegaly. Referred By: Interpreted By: Matt Guzman MD, 11/30/2024 12:24 AM Narrative 11/30/2024 12:33 AM CDT [facility] [address] [place], [place] [address] EXAMINATION: CT Chest without contrast EXAM DATE/TIME: 11/29/2024 11:39 PM REASON FOR EXAM: Fall; left sided rib pain; shortness of breath COMPARISON: Chest x-ray 08/05/2023 TECHNIQUE: Axial CT images of the chest are obtained without the use of IV contrast agent. Subsequent coronal and sagittal reformatted sequences are greater for evaluation. A dose lowering technique was used for this procedure, which may include, but is not limited to, dose reduction technique, automated exposure control, iterative reconstruction, ALARA (As Low As Reasonably Achievable), or Image Gently techniques. FINDINGS: Heart: No cardiomegaly. No pericardial effusion. Mediastinal/Lymph nodes: No mass or lymphadenopathy. Lungs/Pleura: No pulmonary mass or airspace consolidation. No pleural effusion. No pneumothorax. Upper abdomen: No acute findings in the visualized aspects of the upper abdomen. Hepatic steatosis. Mild splenomegaly. Musculoskeletal: No acute osseous findings. Procedure Note aMtt Guzman MD - 11/30/2024 [facility] [address] [place], [place] [address] EXAMINATION: CT Chest without contrast EXAM DATE/TIME: 11/29/2024 11:39 PM REASON FOR EXAM: Fall; left sided rib pain; shortness of breath COMPARISON: Chest x-ray 08/05/2023 TECHNIQUE: Axial CT images of the chest are obtained without the use of IVcontrast agent. Subsequent coronal and sagittal reformatted sequences aregreater for evaluation. A dose lowering technique was used for thisprocedure, which may include, but is not limited to, dose reductiontechnique, automated exposure control, iterative reconstruction, ALARA (AsLow As Reasonably Achievable), or Image Gently techniques. FINDINGS: Heart: No cardiomegaly. No pericardial effusion. Mediastinal/Lymph nodes: No mass or lymphadenopathy. Lungs/Pleura: No pulmonary mass or airspace consolidation. No pleuraleffusion. No pneumothorax. Upper abdomen: No acute findings in the visualized aspects of the upperabdomen. Hepatic steatosis. Mild splenomegaly. Musculoskeletal: No acute osseous findings. IMPRESSION: 1. No acute intrathoracic findings. 2. Hepatic steatosis and mild splenomegaly. Referred By: Interpreted By: Matt Guzman MD, 11/30/2024 12:24 AM Silke Gutiérrez [employer] CT Final Result * (ABNORMAL) HEMOGLOBIN, GLYCATED (05/07/2023 8:09 AM CDT) HGB A1C 8.7(H) <5.7 % 05/07/2023 9:02 AM CDT [facility] ESTIMATED AVG GLUCOSE 203(H) 74 - 114 MG/DL 05/07/2023 9:02 AM CDT [facility] 05/07/2023 8:09 AM CDT Zakiya Angel MD LABORATORY Final Result [facility] [address] [place] [address], [id number] * (ABNORMAL) LIPID PANEL (05/07/2023 8:09 AM CDT) CHOLESTEROL 115 MG/DL 05/07/2023 8:50 AM CDT [facility] Comment:DESIRABLE: <200 TRIGLYCERIDES 92 MG/DL 05/07/2023 8:50 AM CDT [facility] Comment:<150 NORMAL HDL 31(L) >39 MG/DL 05/07/2023 8:50 AM CDT [facility] LDL (CALCULATED) 66 MG/DL 05/07/20 8:50 AM CDT [facility] Comment:<100 OPTIMAL VLDL CALCULATION 18 MG/DL 05/07/20 8:50 AM CDT [facility] Comment:REFERENCE RANGE NOT ESTABLISHED CHOL/HDL RATIO 3.7 05/07/2023 8:50 AM CDT [facility] Comment:REFERENCE RANGE NOT ESTABLISHED LDL/HDL 2.1 05/07/2023 8:50 AM CDT [facility] Comment:REFERENCE RANGE NOT ESTABLISHED NON HDL CHOLESTEROL 84 MG/DL 05/07/2023 8:50 AM CDT [facility] Comment:REFERENCE RANGE NOT ESTABLISHED 05/07/2023 8:09 AM CDT Zakiya Angel MD LABORATORY Final Result [facility] [address] [place] [address], [place] [phone] [id number] from Last 3 Months or Most Recently Relevant to Health Maintenance Insurance [place] Advance Directives * Full Code (Latest Code Status on File) Date Activated Date Inactivated Comments 07/11/2023 8:16 AM 07/11/2023 1:37 PM * Full Code Date Activated Date Inactivated Comments 06/30/2023 5:14 AM 07/06/2023 2:29 PM * Full Code Date Activated Date Inactivated Comments 05/06/2023 4:32 AM 05/09/2023 5:33 AM Care Teams Director Of Entertainment Relationship Specialty Start Date End Date None, Provider, PCP - General 04/22/20
--- OUTSIDE RECORDS SUMMARY | 2024-12-03 04:52 | XMS_ITS | Clinical Summary ---
Author Organization [facility] Address [address] [place] [address] Care Team Providers Care [employer] Dealer Name Role Phone Shahla MCKEON MD, Deonte Page Primary Care Provider + Source Comments [facility],non-owned Affiliates and Associated Physician Practices is amultiple site organization consisting of ambulatory clinics and hospital sitesin [place], [place], [place] and [place]. This disclosure is being madepursuant to the Care Everywhere program and may not contain all information available regarding this patient. Last updated 18.[facility] Allergies No known active allergies Medications * Be aware that medications may not be up to date on this document. Alwaysverify current medications with the patient. Acetaminophen Extra Strength 500 MG TABSIndications: Cellulitis of groin, right TAKE 1-2 TABLETS BY MOUTH THREE TIMES DAILY NEEDED FOR PAIN. MAXIMUM ALLOWABLE ACETAMINOPHEN AMOUNT= 4 GM 4000 MG/ 24 HOURS 100 tablet 10/25/19 Active Alcohol Swabs USE 1 EACH 7 TIMES DAILY TO CLEAN AREA BEFORE TESTING AND INJECTING. 300 Each 10/25/19 24 Active lancetsIndicatio ns:Type 2 diabetes mellitus with stage 2 chronic kidney disease, with long-term current use of insulin (HCC) USE TO TEST BLOOD SUGAR 3 TIME(S) DAILY. 300 Each 10/25/19 24 Active Blood Glucose Monitoring Suppl (Blood Glucose Monitor System) w/Device KITIndications:T ype 2 diabetes mellitus with stage 2 chronic kidney disease, with long-term current use of insulin (HCC) Use 1 Each as directed 1 Each 1 10/25/19 24 Active Insulin Pen Needle (Pen Oriental) 33G X 4 MM MISCIndications: Type 2 diabetes mellitus with stage 2 chronic kidney disease, with long-term current use of insulin (HCC) Use 1 Each 4 times daily 300 Each 10/25/19 24 Active NIFEdipine CR 24hr (Adalat CC) 90 MG tabletIndication s:Essential (primary) hypertension TAKE ONE TABLET BY MOUTH ONCE DAILY 90 tablet 3 5 2:54 PM FILLER SPREADER 11/20/19 24 Active blood glucose test stripIndications :Type 2 diabetes mellitus with diabetic chronic kidney disease ([facility]) USE TO TEST BLOOD SUGAR 3 TIME(S) DAILY. 300 strip 11 4 12:41 PM FILLER SPREADER 12/11/19 24 025 Active metFORMIN (Glucophage) 500 MG tabletIndication s:Type 2 diabetes mellitus with other specified complication (HCC) TAKE ONE TABLET BY MOUTH TWO TIMES A DAY WITH MORNING AND EVENING MEAL 180 tablet 1 5 2:54 PM FILLER SPREADER 04/22/20 24 025 Active losartan (Cozaar) 50 MG tablet Take 1 (one) tablet by mouth once daily 30 tablet 5 5 2:54 PM FILLER SPREADER 05/06/20 24 025 Active ivabradine (Corlanor) 5 MG tablet TAKE ONE TABLET BY MOUTH 2 TIMES A DAY WITH MORNING AND EVENING MEAL 60 tablet 11 06/04/20 24 025 Active Additional Information Patient not taking.Reported on 06/24/2024 patiromer (Veltassa) 8.4 g packet MIX PER INSTRUCTIONS AND DRINK CONTENTS OF ONE PACKET ONCE DAILY WITH FOOD 30 Each 3 06/04/20 24 025 Active carvedilol (Coreg) 25 MG tabletIndication s:Hypertension Take 1 (one) tablet by mouth 2 times daily with morning and evening meal Reasons: High Blood Pressure 180 tablet 1 4 12:41 PM FILLER SPREADER 06/24/20 24 Active gabapentin (Neurontin) 300 MG capsuleIndicatio ns:Essential hypertension, benign,Stage 3b chronic kidney disease (HCC),Essential (primary) hypertension,Nilo ropathy,Type 2 diabetes mellitus with stage 3b chronic kidney disease, with long-term current use of insulin (HCC) Take 1 (one) capsule by mouth 3 times daily 180 capsule 1 5 2:54 PM FILLER SPREADER 06/24/20 24 025 Active Blood Pressure Monitoring (Blood Pressure Monitor 3) DEVIIndications: Essential hypertension, benign,Stage 3b chronic kidney disease (HCC),Essential (primary) hypertension,Nilo ropathy,Type 2 diabetes mellitus with stage 3b chronic kidney disease, with long-term current use of insulin ([facility]) Use 1 device once daily 1 device 06/24/20 24 Active furosemide (Lasix) 40 MG tabletIndication s:Essential hypertension, benign,Stage 3b chronic kidney disease (HCC),Essential (primary) hypertension,Nilo ropathy,Type 2 diabetes mellitus with stage 3b chronic kidney disease, with long-term current use of insulin ([facility]) Take 1 (one) tablet by mouth 3 times daily 270 tablet 3 5 2:54 PM FILLER SPREADER 06/24/20 24 Active Semaglutide(0.25 or 0.5MG/DOS) 2 MG/3ML Solution Pen-injectorIndi cations:Type 2 diabetes mellitus with stage 3b chronic kidney disease, with long-term current use of insulin ([facility]) INJECT 0.5MG UNDER THE SKIN EVERY 7 DAYS FOR 18 DAYS 3 mL 5 2:54 PM FILLER SPREADER 06/24/20 24 025 Active sodium bicarbonate 650 MG tablet Take 1 (one) tablet by mouth 2 times daily 60 tablet 5 5 2:54 PM FILLER SPREADER 06/25/20 24 025 Active ergocalciferol (Drisdol) 1.25 MG (08684 UT) capsule Take 1 (one) capsule by mouth every 7 days 12 capsule 1 5 2:54 PM FILLER SPREADER 06/25/20 24 Active rosuvastatin (Crestor) 40 MG tabletIndication s:Dyslipidemia TAKE ONE TABLET BY MOUTH ONCE DAILY 90 tablet 1 5 2:54 PM FILLER SPREADER 07/11/20 24 025 Active Cholecalciferol 1.25 MG (67834 UT) Take 1 capsule (50,000 Units) by mouth every 7 days 8 capsule 4 3:24 PM FILLER SPREADER 07/11/20 24 Active aspirin (Aspirin) 81 MG chew tablet Take 1 (one) tablet by mouth once daily 100 tablet 5 2:54 PM FILLER SPREADER 07/18/20 24 Active empagliflozin (Jardiance) 10 MG tabletIndication s:Type 2 diabetes mellitus with hyperglycemia, with long-term current use of insulin ([facility]) TAKE ONE TABLET BY MOUTH ONCE DAILY 90 tablet 1 5 2:54 PM FILLER SPREADER 09/02/19 25 026 Active Lantus SoloStar penIndications:T ype 2 diabetes mellitus with hyperglycemia, with long-term current use of insulin ([facility]) INJECT 40 UNITS UNDER THE SKIN ONCE DAILY AT BEDTIME 45 mL 1 5 2:54 PM FILLER SPREADER 09/02/19 25 026 Active amoxicillin (Amoxil) 500 MG capsule Take 1 (one) capsule by mouth every 8 hours 21 capsule 5 12:31 PM CDT 11/05/19 25 Active spironolactone (Aldactone) 50 MG tablet Take 1 (one) tablet by mouth once daily 180 tablet 4 10/27/19 24 024 Discontin ued(Yes Pharm/AVS ) sodium zirconium cyclosilicate (Lokelma) 10 g packet MIX PER INSTRUCTIONS AND TAKE ONE PACKET BY MOUTH ONCE DAILY 60 Each 10/27/19 24 024 Discontin ued(Cance lRx (Interfac e Use Only)) insulin lispro (HumaLOG KwikPen) 100 UNIT/ML penIndications:T ype 2 diabetes mellitus with stage 2 chronic kidney disease, with long-term current use of insulin ([facility]) Inject 10 (ten) Units subcutaneously 3 times daily before meals 15 mL 1 5 2:54 PM FILLER SPREADER 05/29/20 24 025 Active Problems Problem Noted Date Diagnosed Date Decreased sensation 07/17/2024 Neurosensory deficit 07/17/2024 Lymphedema 04/22/2024 Dyslipidemia 04/22/2024 Type 2 diabetes mellitus wit h stage 2 chronic kidney disease, with long-term current use of insulin 04/22/2024 Chronic diastolic heart failure 01/03/2024 Grade III diastolic dysfunction 01/03/2024 Acute on chronic heart failu re with preserved ejection fraction 10/17/2023 Diabetic neuropathy 10/17/2023 Hyperkalemia 09/04/2023 Cellulitis of right leg 06/30/2023 CHF (congestive heart failure) 05/06/2023 Hypertension, unspecified type 04/21/2023 Chronic kidney disease, unspecified CKD stage Impaired mobility and ADLs 04/21/2023 Type 2 diabetes mellitus wit h hyperglycemia, with long-term current use of insulin 04/21/2023 Diabetes mellitus with kidney disease 04/18/2023 Persistent proteinuria 02/20/2023 Hospital acquired PNA 01/12/2023 Overview (04/22/2024): Last Assessment & Plan: -Found to have HAP 01/05 s/p 7 days of vanc/cefe/flagyl (and will be on additional for necrotizing thigh infection until 01/17) -RVP neg, CXR neg on RA so likely SOB from deconditioning -added prn anti-tussives and nebs -CTM Necrotizing fasciitis 12/29/2022 Essential hypertension, benign 12/29/2022 Class 3 severe obesity with serious comorbidity and body mass index (BMI) greater than or equal to 70 in adult 12/20/2022 Sleep apnea 12/20/2022 BMI 70 and over, adult 12/20/2022 half-way (current) use of insulin 11/24/2021 Peripheral neuropathy 08/19/2021 Elevated liver enzymes 06/26/2020 Osteomyelitis 06/26/2020 Tobacco dependence 06/26/2020 Resolved Problems Problem Noted Date Diagnosed Date Resolved Date Chest pain, unspecified type 10/26/2023 10/26/2023 Right foot pain 10/16/2023 10/26/2023 CKD stage 2 due to type 2 diabetes mellitus 02/20/2023 10/26/2023 Dyspnea on exertion 02/20/2023 10/26/19 SOB (shortness of breath) 02/20/2023 Leg swelling 02/20/2023 10/26/2023 Overweight 02/20/2023 10/26/2023 Necrotizing soft tissue infection 02/15/2023 10/26/2023 Encounter for management of wound VAC 02/15/2023 10/26/2023 Wound disruption, initial encounter 02/03/2023 10/26/2023 Nausea and vomiting, unspeci fied vomiting type 12/29/2022 10/26/2023 Hyperglycemia 12/29/2022 10/26/2023 Sepsis 12/29/2022 10/26/2023 Anemia 12/29/2022 10/26/2023 Acute hypoxemic respiratory failure 12/29/2022 10/26/2023 Shock 12/29/2022 10/26/2023 Hyponatremia 12/26/2022 10/26/2023 Right inguinal pain 12/20/2022 10/26/19 24 Cellulitis of groin, right 12/20/2022 0 10/26/2023 Diabetic ketoacidosis withou t coma associated with type 2 diabetes mellitus 12/20/2022 10/26/2023 Non-compliance 12/20/2022 10/26/2023 Diabetes 1.5, managed as type 1 12/20/2022 10/26/2023 Hypercholesteremia 12/20/2022 Encounters Date Type Department Care Team Description 09/23/2024 Telephone [facility] - Centralized Scheduling [address] [place] [id number] Amanda Lees MD Reschedule Appointment (09/23-Called to reschedule Nabeel's 09/26 appt- reschedule to the next available. Voicemail is full. Called Jennyfer Contact-Juansi Meza [phone]-Voicemai l is full-MyChart entered on 09/20-Not read-Mailed reschedule [id number]-[id number]//09/24-C kated Child picked up the phone & advised that his Mom was asleep. 3rd [id number] -MS) 09/20/2024 Telephone [facility] - Plastic Surgery [address] [place] [id number] Amanda Lees MD Appointment 09/19/2024 1:30 PM FILLER SPREADER Office Visit [facility] - Internal Med [address] [place] [phone] Fan Millard DO Dermoid cyst of scalp and neck (Primary Dx) 09/19/2024 Travel from Last 3 Months Immunizations Immunization Administration Dates Next Due HEP B VACCINE, ADULT 3 DOSE 04/22/2024, 3,03/22/2023 INFLUENZA VACCINE, QUADR. (F LUZONE; FLULAVAL; FLUARIX; AFLURIA QUADRIVALENT; 6MO+), 0.5 ML (IIV4) 10/25/2023 PNEUMOCOCCAL PCV20 CONJ VAC IM 03/22/2023 TDAP (7yrs+) 03/22/2023 iNFLUENZA VACCINE, RECOM-HOOKER, QUADR. (FLUBLOCK QUADRIVALENT; 18Y+) (RIV4) 04/22/2024 Family History Medical History Relation Name Comments Diabetes; unknown type Father Hypertension Father Diabetes; unknown type Mother Hypertension Mother Blindness Neg Hx Cataract Neg Hx Glaucoma Neg Hx Macular Degeneration Neg Hx Relation Name Status Comments Father Mother Social History Tobacco Use Types Packs/Day Years Used Date Smoking Tobacco: Every Day Cigarettes 0.5 5 Smokeless Tobacco: Never Tobacco Cessation:Ready to Q uit: Not Asked; Counseling Given: Not Answered Comments:Currently not smoking Alcohol Use Standard Drinks/Week Comments Not Currently [...] Date Recorded Patient Health Questionnaire-2 Score 0 09/19/2024 [facility] ional [facility] - Occupational Stress [...] place to sleep or slept in a penitentiary (including now)? No 10/17/2023 Sex and Gender Information Value Date Recorded Sex Assigned at Not on file Legal Sex Male 12:46 AM CDT Gender Identity Not on file Sexual Orientation Not on file Last Filed Vital Signs Vital Sign Reading Time Taken Comments Blood Pressure 177/101 09/19/2024 1:32 PM FILLER SPREADER Pulse 88 09/19/2024 1:32 PM FILLER SPREADER Temperature 36.4 C (97.5 F) 09/19/2024 1:30 PM FILLER SPREADER Respiratory Rate 18 07/18/2024 12:32 AM FILLER SPREADER Oxygen Saturation 97% 09/19/2024 1:30 PM FILLER SPREADER Inhaled Oxygen Concentration 21% 02/05/2023 4 :18 AM CDT Weight 236.8 kg (522 lb) 09/19/2024 1:30 PM FILLER SPREADER Height 180.3 cm (5' 11 ) 09/19/2024 1:30 PM FILLER SPREADER Body Mass Index 72.8 09/19/2024 1:30 PM FILLER SPREADER Plan of Treatment Upcoming Encounters Date Type Department Care Team (Late st Contact Info) Description 12/03/2024 8:30 AM CDT Office Visit [facility] - Internal Med [address] [place] [address], [place] [address] Deonte Gale II, MD [address] [place] [address] [address] [facility] [place] [address] Health Maintenance Due Date Last Done Comments DIABETES-FOOT EXAM WITH MONOFILAMENT 03/22/2024 03/22/2023 COVID-19 VACCINE ( season) 2024 DIABETES - URINE PROTEIN SCREENING 08/07/2024 06/24/2024, 06/24/2024, 04/22/2024, Additional history exists DIABETES-HGB A1C 10/15/2024 07/17/2024, , 09/04/2023, Additional history exists DIABETES-SERUM CREATININE 07/18/20252023, 07/17/2024, 07/17/2024, Additional history exists DIABETES RETINOPATHY SCREENING 05/08/2026 05/08/2024, 05/08/2024 DTAP/TDAP/TD VACCINES (2 - Td or Tdap) 03/22/2033 03/22/2023 ZOSTER VACCINE (1 of 2) 2038 HEPATITIS C SCREENING Completed 02/21/2023, 023 HIV SCREENING Completed 02/21/2023, 01/06/2023 PNEUMOCOCCAL VACCINE Completed 03/22/2023 HEPATITIS B VACCINE Completed 04/22/2024, 04/26/2023, 03/22/2023 INFLUENZA VACCINE Completed 04/22/2024, 10/25/2023 DEPRESSION SCREENING Completed 09/19/2024, 03/22/20 23 HIB VACCINE Aged Out No longer eligi ble based on patient's age to complete this topic HPV VACCINE Aged Out No longer eligi ble based on patient's age to complete this topic MENINGOCOCCAL (Group B) VACCINE SHARED DECISION-MAKING Aged Out No longer eligible based on patient's age to complete this topic MENINGOCOCCAL GROUPS A/C/Y/W VACCINE Aged Out No longer eligible based on patient's age to complete this topic Goals Goal Patient Goal Type Associated Problems Recent Progress Patient-Stated? Author Medication Management General On track( 024 10:46 AM CDT) Tanja Cortez, RN Note: Expected end date: Ongoing Interventions: Take all medications as prescribed Let your doctor know right away about any changes in your medications Make sure to request a refill of your medication at least one week prior to your last dose Procedures Procedure Name Priority Date/Time Associated Diagnosis Comments COMPREHENSIVE METABOLIC PANEL STAT 07/18/2024 4:27 AM FILLER SPREADER Neurosensory deficit HEMOGLOBIN A1C ELAINE 07/17/2024 7:50 PM FILLER SPREADER Type 2 diabetes mellitus without complication, with long-term current use of insulin MICROALB/CREAT RATIO URINE RANDOM PANEL Routine 06/24/2024 12:40 PM FILLER SPREADER Essential hypertension, benign Stage 3b chronic kidney disease Essential (primary) hypertension Neuropathy Type 2 diabetes mellitus with stage 3b chronic kidney disease, with long-term current use of insulin HEPATITIS C AB SCREEN RFLX NAAT QUANT Routine 02/21/2023 3:32 PM CDT HIV-1 HIV-2 ANTIBODY + HIV P24 AG PANEL Routine 02/21/2023 3:32 PM CDT from Last 3 Months or Most Recently Relevant to Health Maintenance Results * (ABNORMAL) COMPREHENSIVE METABOLIC PANEL (07/18/2024 4:27 AM FILLER SPREADER) BUN 45(H) 7 - 26 mg/dL 07/18/2024 5:10 AM [facility] Creatinine 2.90(H) 0.71 - 1.16 mg/dL 07/18/2024 5:10 AM [facility] Sodium 132(L) 136 - 145 mmol/L 07/18/2024 5:10 AM [facility] Potassium 4.9(H) 3.5 - 4.5 mmol/L 07/18/2024 5:10 AM [facility] Chloride 103 98 - 107 mmol/L 07/18/2024 5:10 AM [facility] CO2 21(L) 22 - 29 mmol/L 07/18/2024 5:10 AM [facility] Glucose 402(H) 70 - 99 mg/dL 07/18/2024 5:10 AM [facility] Calcium 8.1(L) 8.4 - 10.2 mg/dL 07/18/2024 5:10 AM [facility] Protein Total 6.7 6.0 - 8.3 g/dL 07/18/2024 5:10 AM [facility] Albumin 2.6(L) 3.4 - 5.0 g/dL 07/18/2024 5:10 AM [facility] Bilirubin Total 0.3 0.2 - 1.2 mg/dL 07/18/2024 5:10 AM [facility] Alkaline Phosphatase 45 40 - 150 U/L 07/18/2024 5:10 AM [facility] ALT 11 5 - 55 U/L 07/18/2024 5:10 AM [facility] AST 11 5 - 34 U/L 07/18/2024 5:10 AM [facility] Anion Gap 8 6 - 16 07/18/2024 5:10 AM [facility] BUN/Creatinine Ratio 16 7 - 23 07/18/2024 5:10 AM [facility] Osmolality Calculated 302(H) 275 - 295 mOsm/kg 07/18/2024 5:10 AM [facility] Albumin/Globulin Ratio 0.6(L) 1.1 - 2.3 07/18/2024 5:10 AM [facility] eGFR by CKD-EPI 28(L) >=90 mL/min/1.7 3 m2 07/18/2024 5:10 AM [facility] Blood BLOOD SPECIMEN / Unknown Venipuncture / Unknown 07/18/2024 4:27 AM FILLER SPREADER 07/18/2024 4:38 AM [facility] us Leti Adkins MD LAB - CHEMISTRY ORDERABLES F inal Result [facility] [address] [place] [address], [facility] [phone] * (ABNORMAL) HEMOGLOBIN A1C (07/17/2024 7:50 PM FILLER SPREADER) Hemoglobin A1c 11.0(H) <=5.6 % 07/18/2024 9:54 AM [facility] Estimated Average Glucose 269 mg/dL 07/18/2024 9:54 AM [facility] Comment: HbA1c Interpretation: Normal : < 5.7% Pre-diabetes: 5.7-6.4% Diabetes: Equal to or greater than 6.5% Test results diagnostic of diabetes should be repeated for confirmation. Treatment target values recommended by ADA and other clinical organizations should be used to evaluate metabolic control in patients. Reference: [place] [employer], Standards of Care in Diabetes -2020 In patients 70 years and older consider HbA1c target range of 7.0-7.5% (Reference: Dariusz Menjivar et al. JAMDA. 2012) The Sebia assay for the measurement of HbA1c is a National Glycohemoglobin Standardization Program (NGSP) certified method. Blood BLOOD SPECIMEN / Unknown Venipuncture / Unknown 07/17/2024 7:50 PM FILLER SPREADER 07/17/2024 7:53 PM FILLER SPREADER Leti Adkins MD LAB - CHEMISTRY ORDERABLES F inal Result Performing Organization Address [facility]/ZIP Co de Phone Number [address] [address], [place] [phone] * (ABNORMAL) MICROALB/CREAT RATIO URINE RANDOM PANEL (06/24/2024 12:40 PM FILLER SPREADER) Albumin Random Urine 1,187.1 Not Established ug/mL 06/24/2024 3:19 PM [facility] Comment:Result obtained by jose elias jernigan. Creatinine Urine 42.72 Not Established mg/dL 06/24/2024 3:19 PM [facility] Urine Albumin/Creati nine Ratio 2,779(H) <30 mg/g 06/24/2024 3:19 PM [facility] Urine URINE SPECIMEN OBTAINED BY CLEAN CATCH PROCEDURE / Unknown Collection / Unknown 06/24/2024 12:40 PM FILLER SPREADER 06/24/2024 1:49 PM FILLER SPREADER Vineet Smith MD LAB - URINE CHEMISTRY ORDERABLES Final Result Performing Organization Address [facility]/ZIP Co de Phone Number [address] [address], [place] [phone] * HEPATITIS C AB SCREEN RFLX NAAT QUANT (02/21/2023 3:32 PM CDT) Hepatitis C Antibody Non-react lea Non-reac tive 02/21/2023 4:31 PM CDT [facility] Comment:Hepatitis C Antibody screen indicates no serologic evidence of past or current infection with Hepatitis C Virus. Patients with unexplained liver disease who are immunocompromised or suspected of having acute Hepatitis C infection may benefit from Nucleic Acid Test (CHALINO) for Hepatitis C Viral RNA to confirm Hepatitis C status. Blood BLOOD SPECIMEN / Unknown Lab Venipuncture / Unknown 02/21/2023 3:32 PM CDT 02/21/2023 3:40 PM CDT Rosey Amor MD LAB - CHEMISTRY ORDERABLES Final Result Performing Organization Address [facility]/ZIP Co de Phone Number [address] [address], [place] [phone] * HIV-1 HIV-2 ANTIBODY + HIV P24 AG PANEL (02/21/2023 3:32 PM CDT) HIV Antigen/Antibod y 1 & 2 Non-reacti ve Non-react lea 02/21/2023 4:31 PM CDT [facility] Comment:No Laboratory eviden ce of HIV infection. Blood BLOOD SPECIMEN / Unknown Lab Venipuncture / Unknown 02/21/2023 3:32 PM CDT 02/21/2023 3:40 PM CDT Rosey Amor MD LAB - CHEMISTRY ORDERABLES Final Result Performing Organization Address [facility]/ZIP Co de Phone Number [address] [address], [place] [phone] from Last 3 Months or Most Recently Relevant to Health Maintenance Insurance [place] MED[place] [employer]AN AMBETTER Advance Directives * Full Code (Latest Code Status on File) Date Activated Date Inactivated Comments 07/17/2024 7:39 PM 07/18/2024 3:28 PM * Full Code Date Activated Date Inactivated Comments 10/26/2023 1:25 AM 10/27/2023 5:32 PM * Full Code Date Activated Date Inactivated Comments 10/16/2023 5:16 AM 10/18/2023 2:56 PM * Full Code Date Activated Date Inactivated Comments 10/16/2023 5:16 AM 10/16/2023 5:16 AM * Full Code Date Activated Date Inactivated Comments 04/21/2023 2:47 PM 04/23/2023 1:48 PM Care Teams [employer] Dealer Relationship Specialty Start Date End Date Deonte Gale II, MD [address] OF [facility] [place] [address] PCP - General Internal Medicine 04/06/23
--- OUTSIDE RECORDS SUMMARY | 2024-12-03 04:53 | XMS_ITS | Referral Summary ---
Author Organization [facility] Address [address] [place] [address] Care Team Providers Care Senior Marketing Associate Name Role Phone No, Physician Primary Care Provider [phone] Allergies No known active allergies Medications aspirin [...] improved as compared to the ones from [facility] early January 2023 -monitor Necrotizing soft tissue infection 01/12/2023 Assessment & Plan (01/16/2023 11:33 AM CDT): -Found to have necrotizing fascitis on 12/29. -Underwent debridement 12/31 and washout 01/03, 01/05 with cultures growing staph haemolyticus, staph epi, and prevotella. Bcx neg. -left [facility] AMA before finishing antibiotics -continue vancomycin, cefepime and flagyl, EOT 01/17/23 -needs dry dressing changes daily. Wound c/s -[facility] consulted for reena drain emoval today and sutures will need to be out 02/05 at [facility] -advised follow up with his surgeons at [facility] Diabetes 01/12/2023 Assessment & Plan (01/13/2023 [...] up leaving A. Was told that his [place] Medicaid would not cover SNF which he [...] hypoxic and was receiving DVT ppx at [facility]. No signs of volume overload Social [...] often do you attend chur ch or christian services? More than 4 times per year 01/19/2023 Do you belong to any clubs o r organizations such as temple groups, unions, fraternal or athletic groups, or [...] place to sleep or slept in a half-way (including now)? No 01/19/2023 Personal Safety Answer [...] 01/13/2023 12:27 AM CDT Plan of Treatment Not on file Procedures Procedure Name Priority Date/Time Associated Diagnosis Comments EGFR Routine 01/15/2023 10:26 PM CDT HEMOGLOBIN A1C STAT 01/12/2023 7:53 PM CDT LIPID PANEL STAT 01/12/2023 7:53 PM CDT from Last 3 Months or Most Recently Relevant to Health Maintenance Results * (ABNORMAL) eGFR (01/15/2023 10:26 PM CDT) Pathologist [facility] eGFR 50(L) 90 - 130 mL/min/1. 73 m2 [facility] Comment: Interpretive Data Reference Interval Normal >/= [...] BLOOD ORDERABLES Final Result Performing Organization Address City/[facility] Co de Phone Number [facility] [place] [address] * (ABNORMAL) Hemoglobin A1c (01/12/2023 7:53 PM CDT) Hgb A1C 11.8(H) 4.0 - 5.6 % [facility] Estimated Average Glucose 292 mg/dL [facility] Comment: The ADA recommends reporting an estimated Average Glucose (eAG) with all Hemoglobin A1c results using the equation derived from a study of 507 normal and diabetic adults. Minority populations were underrepresented and children were not included. (Diabetes Care 2020; 43(S1): S66-S76). The eAG is not equivalent to a fasting glucose. Blood 01/12/2023 7:53 PM CDT 01/12/2023 8:07 PM CDT us Deepika Ragland MD LAB BLOOD ORDERABLES Final Result Performing Organization Address [facility]/ZIP Co de Phone Number [facility] Department [place] [address] * (ABNORMAL) Lipid panel (01/12/2023 7:53 PM CDT) [facility] Cholesterol 105 30 - 199 mg/dL [facility] Comment: Interpretive Data Ages < or = [...] revised on 2018. Triglycerides 125 <=149 mg/dL [facility] Comment: Interpretive Data Ages < or = [...] revised on 2018. HDL 33(L) >=40 mg/dL [facility] Comment: Interpretive Data Ages < or = [...] on 2018. LDL, calculated 47 <=129 mg/dL [facility] Comment: Interpretive Data Ages < or = [...] revised on 2018. Non-HDL Cholesterol 72 mg/dL [facility] Comment: Interpretive Data Ages < or [...] last revised on 2018. Chol/HDL ratio 3 [facility] Blood 01/12/2023 7:53 PM CDT 01/12/2023 8:05 PM CDT us Deepika Ragland MD LAB BLOOD ORDERABLES Final Result [facility] Department [place] [address] from Last 3 Months or Most Recently Relevant to Health Maintenance Insurance [employer] [facility] Advance Directives For more information, please contact: [phone] * Full Code (Latest Code Status on File) Date Activated Date Inactivated Comments 01/13/2023 12:05 AM 01/17/2023 7:22 PM Care Teams Senior Marketing Associate Relationship Specialty Start Date End Date No, Physician PCP - General 01/12/23
== END 2024-12-03 05:22 | disposition home or self-care (01) ==
PROVIDERS: Emergency Provider Student in an Organized Health Care Education/Training Program
DX: S20.212A Contusion of left front wall of thorax, initial encounter (principal); V47.1XXA Car passenger injured in collision with fixed or stationary object in nontraffic accident, initial encounter
CPT/HCPCS: 71100; 96372; 99283; J1885